=== PATIENT | male | born 1935 | race Caucasian/White ===

== ENCOUNTER 2017-10-23 13:02 | Day surgery (SDC) | payer MEDICARE ==
[~2017-10-23 13:02] MED LIST: ALLEGRA ALLERG180 MG PO; AMIO200; AMIODARONE 100 MG; ASPI81EC PO; CALCAVITD PO; CALCIUM 1200 MG; CARV6.25; CARV6.25 PO; CHOL10002 PO; CLOP75 PO; COREG; DIPH50 PO; ERGO400 PO; FAMO20 PO; FERROUS SULFATE PO; FEXO180; FURO20; FURO40 PO; HORSETAIL PO; HYDROCORT; Isosorbide Mono30 MG PO; LIVALO2 MG PO; LORTISONE CREAM; METO10; METO10 PO; METPRE4DP PO; MULVITA; MULVITMINF PO; OMEGA 3 PO; OMEP20ER PO; PANT40; PRAV20 PO; QUIN10; QUIN10 PO; QUINAPRIL 40 MG; RANI150 PO; ROSU10TA PO; ROSUVASTATIN 5 MG; SAW PALMETTO PO; SPIR25; SPIR25 PO; TAMS.4ER PO; VITAMIN D; WARF5; ZESTRIL40 MG PO; [UNRECOGNIZED DRUG - OTHER]; [UNRECOGNIZED DRUG - REMARK]
[2017-10-23] MEDS ORDERED: Colace100 MG PO (14:03)
[2017-10-23] MEDS ORDERED: D MANNOSE PO (14:08)
[2017-10-23] MEDS ORDERED: Lotrisone Cream45 GM EXT (14:09)
== END 2017-10-23 16:35 | disposition home or self-care (01) ==
LOC: ATC 13:02
DX: I12.9 Hypertensive chronic kidney disease with stage 1 through stage 4 chronic kidney disease, or unspecified chronic kidney disease (principal); N18.4 Chronic kidney disease, stage 4 (severe); D63.1 Anemia in chronic kidney disease
CPT/HCPCS: 36415; 36430; 86850; 86900; 86901; 86920; 96374; J7030; P9016

== ENCOUNTER → 2017-11-06 | Outpatient (CLI) | payer MEDICARE ==
[~2017-11-06] MED LIST changes: +Colace100 MG PO; +D MANNOSE PO; +Lotrisone Cream45 GM EXT; +PANT40 PO
[2017-11-06 13:59] LABS: Stool Occult Bld Immuno 1 Positive (NEGATIVE)
== END ==
LOC: OLS 09:53
PROVIDERS: Internal Medicine Nephrology
DX: N18.3 Chronic kidney disease, stage 3 (moderate) (principal); D63.1 Anemia in chronic kidney disease; R73.09 Other abnormal glucose
CPT/HCPCS: 82274

== ENCOUNTER 2017-12-07 08:54 | Day surgery (SDC) | payer MEDICARE ==
[~2017-12-07] VITALS: Ht 185.4 cm; Wt 106.6 kg
[~2017-12-07 08:54] MED LIST changes: -PANT40 PO
[2017-12-07] MEDS ORDERED: PANT40 PO (09:24)
== END 2017-12-07 22:45 | disposition home or self-care (01) ==
LOC: ORSCMMR 08:54
PROVIDERS: Surgery
PROC: 0DJD8ZZ Inspection of Lower Intestinal Tract, Via Natural or Artificial Opening Endoscopic (ICD-10-PCS; principal; 2017-12-07 10:45)
DX: R19.5 Other fecal abnormalities (principal); Z86.010 Personal history of colon polyps; I10 Essential (primary) hypertension; I25.10 Atherosclerotic heart disease of native coronary artery without angina pectoris; K21.9 Gastro-esophageal reflux disease without esophagitis; E78.5 Hyperlipidemia, unspecified; E66.9 Obesity, unspecified; Z68.31 Body mass index [BMI] 31.0-31.9, adult; D64.9 Anemia, unspecified; Z79.82 Long term (current) use of aspirin; Z79.899 Other long term (current) drug therapy
CPT/HCPCS: J7120

== ENCOUNTER → 2019-01-02 | Outpatient (CLI) | payer MEDICARE ==
[~2019-01-02] MED LIST changes: +PANT40 PO
[2019-01-02 20:06] LABS: Percent Saturation 31.9 % (20.0-50.0)
== END ==
LOC: LAB SHORT 19:04 → LAB 19:04
PROVIDERS: Internal Medicine Hematology & Oncology
DX: D50.0 Iron deficiency anemia secondary to blood loss (chronic) (principal)
CPT/HCPCS: 83540; 83550

== ENCOUNTER → 2019-03-19 | Outpatient (CLI) | payer MEDICARE ==
[2019-03-19 18:58] LABS: Prostate Specific Antigen 0.228 ng/mL (0.000-4.000)
== END ==
LOC: LAB SHORT 17:54 → LAB 17:54
DX: Z08 Encounter for follow-up examination after completed treatment for malignant neoplasm (principal); Z85.46 Personal history of malignant neoplasm of prostate
CPT/HCPCS: 84153

== ENCOUNTER → 2019-05-13 | Outpatient (CLI) | payer MEDICARE | END | disposition home or self-care (01) | LOC: PLD 13:35 → LAB SHORT 13:35 | DX: D48.5 Neoplasm of uncertain behavior of skin (principal) | CPT/HCPCS: 88305 ==

== ENCOUNTER → 2019-10-12 | Outpatient (CLI) | payer MEDICARE ==
[2019-10-12 12:15] LABS: BASOPHILS ABSOLUTE AUTO 0.01 K/mm3 (0.00-0.23); BASOPHILS PERCENT AUTO 0 % (0-2); EOSINOPHILS ABSOLUTE AUTO 0.04 K/mm3 (0.00-0.68); EOSINOPHILS PERCENT AUTO 0 % (0-6); Hematocrit 27.9 % (37.0-53.0); Hemoglobin 9.3 g/dL (13.5-17.5); IMMATURE GRAN ABSOLUTE AUTO 0.06 K/mm3 (0.00-0.10); IMMATURE GRAN PERCENT AUTO 1 % (0-1); LYMPHOCYTES ABSOLUTE AUTO 1.45 K/mm3 (0.84-5.20); LYMPHOCYTES PERCENT AUTO 13 % (21-46); MONOCYTES ABSOLUTE AUTO 1.02 K/mm3 (0.16-1.47); MONOCYTES PERCENT AUTO 9 % (4-13); Mean Corpuscular HGB 33.2 pg (26.0-34.0); Mean Corpuscular HGB Conc 33.3 g/dL (31.5-36.5); Mean Corpuscular Volume 100 fL (80-100); Mean Platelet Volume 10.3 fL (9.1-12.4); NEUTROPHILS ABSOLUTE AUTO 8.92 K/mm3 (1.96-9.15); NEUTROPHILS PERCENT AUTO 78 % (41-73); Platelet Count 177 K/mm3 (150-400); RDW Coefficient Variation 13.6 % (11.7-14.2); RDW Standard Deviation 49.4 fL (35.1-46.3)
[2019-10-12 12:18] LABS: Calcium, Blood 8.9 mg/dL (8.5-10.1); Creatinine, Blood 2.55 mg/dL (0.60-1.20); Potassium, Blood 4.2 mmol/L (3.5-5.5)
== END | disposition home or self-care (01) ==
LOC: LAB EV 12:10 → LAB SHORT 12:10
PROVIDERS: Physician Assistant Surgical
DX: R10.9 Unspecified abdominal pain (principal)
CPT/HCPCS: 80048; 85025

== ENCOUNTER 2020-04-03 16:33 | Inpatient (IN) | payer MEDICARE ==
[~2020-04-03] VITALS: Ht 188 cm; Wt 95.2 kg
[~2020-04-03 16:33] MED LIST changes: -CHOL10002 PO; -Colace100 MG PO; +DOCU100 PO; -Isosorbide Mono30 MG PO; +Isosorbide Mono60 MG PO; +MULTI VITAMIN1 EACH PO; -MULVITMINF PO; +VITAMIN D32000 UNI1 PO
[2020-04-03] MEDS ORDERED: WARF4 PO (16:45)
[2020-04-03] MEDS ORDERED: ALLO100 PO (16:58)
[2020-04-03 17:14] LABS: BASOPHILS ABSOLUTE AUTO 0.03 K/mm3 (0.00-0.23); BASOPHILS PERCENT AUTO 0 % (0-2); EOSINOPHILS ABSOLUTE AUTO 0.08 K/mm3 (0.00-0.68); EOSINOPHILS PERCENT AUTO 1 % (0-6); Hematocrit 31.5 % (37.0-53.0); Hemoglobin 10.1 g/dL (13.5-17.5); IMMATURE GRAN ABSOLUTE AUTO 0.02 K/mm3 (0.00-0.10); IMMATURE GRAN PERCENT AUTO 0 % (0-1); LYMPHOCYTES ABSOLUTE AUTO 1.38 K/mm3 (0.84-5.20); LYMPHOCYTES PERCENT AUTO 18 % (21-46); MONOCYTES ABSOLUTE AUTO 0.86 K/mm3 (0.16-1.47); MONOCYTES PERCENT AUTO 11 % (4-13); Mean Corpuscular HGB 29.7 pg (26.0-34.0); Mean Corpuscular HGB Conc 32.1 g/dL (31.5-36.5); Mean Corpuscular Volume 93 fL (80-100); Mean Platelet Volume 10.1 fL (9.1-12.4); NEUTROPHILS ABSOLUTE AUTO 5.21 K/mm3 (1.96-9.15); NEUTROPHILS PERCENT AUTO 69 % (41-73); Platelet Count 224 K/mm3 (150-400); RDW Standard Deviation 57.6 fL (35.1-46.3); White Blood Cell Count 7.58 K/mm3 (4.00-11.30)
[2020-04-03 17:30] LABS: International Normalized Ratio 2.06; Prothrombin Time Results 21.2 Sec (9.7-11.5)
[2020-04-03 17:31] LABS: Alanine Aminotransfer (ALT/SGP 41 U/L (12-78); Albumin, Blood 3.9 g/dL (3.4-5.0); Albumin/Globulin Ratio 1.3 (0.8-1.8); Alk Phos 57 U/L (50-136); Anion Gap 5 mmol/L (6-16); Aspartate Aminotrans (AST/SGOT 24 U/L (12-37); Bilirubin, Total 0.3 mg/dL (0.1-1.0); Blood Urea Nitrogen 46 mg/dL (8-24); CO2, Blood 25 mmol/L (21-32); Calcium, Blood 8.7 mg/dL (8.5-10.1); Chloride, Blood 102 mmol/L (98-108); Creatinine, Blood 2.19 mg/dL (0.60-1.20); Globulin, Blood 2.9 g/dL (2.2-4.0); Glomerular Filtration Rate 31 (60-); Glucose, Blood 99 mg/dL (70-99); Potassium, Blood 4.3 mmol/L (3.5-5.5); Sodium, Blood 132 mmol/L (136-145); Total Protein, Blood 6.8 g/dL (6.4-8.2); Troponin I <0.015 ng/mL (0.000-0.040)
[2020-04-04 01:00] LABS: BASOPHILS ABSOLUTE AUTO 0.02 K/mm3 (0.00-0.23); BASOPHILS PERCENT AUTO 0 % (0-2); EOSINOPHILS ABSOLUTE AUTO 0.01 K/mm3 (0.00-0.68); EOSINOPHILS PERCENT AUTO 0 % (0-6); Hematocrit 37.1 % (37.0-53.0); Hemoglobin 11.9 g/dL (13.5-17.5); IMMATURE GRAN ABSOLUTE AUTO 0.04 K/mm3 (0.00-0.10); IMMATURE GRAN PERCENT AUTO 0 % (0-1); LYMPHOCYTES ABSOLUTE AUTO 1.38 K/mm3 (0.84-5.20); LYMPHOCYTES PERCENT AUTO 10 % (21-46); MONOCYTES ABSOLUTE AUTO 1.19 K/mm3 (0.16-1.47); MONOCYTES PERCENT AUTO 9 % (4-13); Mean Corpuscular HGB 29.6 pg (26.0-34.0); Mean Corpuscular HGB Conc 32.1 g/dL (31.5-36.5); Mean Corpuscular Volume 92 fL (80-100); Mean Platelet Volume 9.4 fL (9.1-12.4); NEUTROPHILS ABSOLUTE AUTO 11.04 K/mm3 (1.96-9.15); NEUTROPHILS PERCENT AUTO 81 % (41-73); Platelet Count 248 K/mm3 (150-400); RDW Coefficient Variation 16.9 % (11.7-14.2); RDW Standard Deviation 57.4 fL (35.1-46.3); Red Blood Cell Count 4.02 M/mm3 (4.30-5.90); White Blood Cell Count 13.68 K/mm3 (4.00-11.30)
--- NOTE | 2020-04-04 01:17 | NUR ---
ADMIT NOTE 04/03/20 9457 PATIENT ADMITTED TO ICU BED 15. PATIENT ARRIVED ON AMIODARONE DRIP. VITAL SIGNS STABLE UPON ARRIVAL. PATIENT ABLE TO MOVE HIMSELF FROM STRETCHER TO BED. PATIENT ARRIVED ON BIPAP ACCOMPANIED BY RT AND ED RN. PATIENT'S BREAHTING UNLABORED WITH BIPAP ON. ORIENTED PATIENT TO ROOM AND CALL LIGHT USE. DISCUSSED PLAN OF CARE. 2300 TOOK HOME GLASSES, CLOTHING, AND WALLET. PATIENT REQUESTED TO KEEP WATCH AND DENTURES WITH HIM.
[2020-04-04 01:20] LABS: Bun/Creatinine Ratio 19.2 (12.0-20.0); Calcium, Blood 8.7 mg/dL (8.5-10.1); Creatinine, Blood 2.29 mg/dL (0.60-1.20); Potassium, Blood 4.5 mmol/L (3.5-5.5); Troponin I 0.074 ng/mL (0.000-0.040)
--- NOTE | 2020-04-04 06:36 | NUR ---
END OF SHIFT SUMMARY PATIENT IS ALERT AND ORIENTED, BUT CAN BE FORGETFUL AT TIMES. HE FOLLOWS COMMANDS APPROPRIATELY. PATIENT CONTINUES TO TOLERATE BIPAP WELL. CPAP MODE ON WITH AN FIO2 OF 30%. LUNGS CONTINUE TO SOUND CRACKLY. BREATHING REMAINS UNLABORED. AMIODARONE DRIP RUNNING AT 0.5 MG THROUGH PIV. PATIENT HAVING LESS FREQUENT ECTOPY. VSS. CONTINUES TO VOID WITH ADEQUATE URINE OUTPUT. GI WNL. LACERATION TO RIGHT FOREHEAD WITH SUTURES INTACT. PLAN TO CONTINUE TO MONITOR RESPIRATORY AND CARDIAC STATUS CLOSELY.
--- NOTE | 2020-04-04 07:45 | NUR ---
AM NOTE... ASSUMED CARE OF PT APROX 0700, PT IS A&Ox4, PT WAS ADMITTED FOR CHF EXAC. PT DENIES CHEST PAIN/PRESSURE, N/V OR INCREASED SOB AT THIS TIME. PT BECOMES SOB WITH ACTIVITY. PT IS IN AFIB WITH BIGEMINAL PVCS. PT WAS ON CPAP AT THE START OF THIS SHIFT. PT SWITCHED TO NC WITH 2 LNC WITH O2 SATS >92%. OTHER VS STABLE. PT IS TO HAVE ECHO THIS AM. CALL LIGHT IN REACH WILL CONTINUE TO MONITOR.
[2020-04-04 08:32] LABS: Bun/Creatinine Ratio 20.2 (12.0-20.0); Calcium, Blood 8.4 mg/dL (8.5-10.1); Creatinine, Blood 2.18 mg/dL (0.60-1.20); Potassium, Blood 4.1 mmol/L (3.5-5.5)
--- NOTE | 2020-04-04 15:00 | NUR ---
ASSUMED PATIENT CARE. PATIENT ARRIVED FROM ICU VIA WHEELCHAIR. NO SIGNS OF ACUTE DISTRESS, WCTM.
--- NOTE | 2020-04-04 18:54 | NUR ---
NO ACUTE EVENTS THIS SHIFT. VSS, PLAN IS TO CONTINUE IV LASIX FOR DIURESIS. CONTINUED MONITORING OF PULMONARY FUNCTION. PATIENT IN A FIB, RATE CONTROLLED. NO SIGNS OF ACUTE DISTRESS.
--- NOTE | 2020-04-04 19:00 | NUR ---
RELINQUISHED PATIENT CARE.
[2020-04-05 04:40] LABS: International Normalized Ratio 2.84; Prothrombin Time Results 28.6 Sec (9.7-11.5)
--- NOTE | 2020-04-05 05:37 | NUR ---
patient admitted due to syncope episode that is likely of cardiac etiology but currently remains inconclusive. No acute events overnight. Patient denies chest pain, chest pressure, or shortness of breath. Vital signs stable and no complaints or concerns overnight.
--- NOTE | 2020-04-05 07:46 | NUR ---
ASSUMED CARE AT 0700, REPORT FROM MICHAEL GUTIÉRREZ. LAYING IN BED IN LOW FOWLERS ON LEFT SIDE. A/A/0X4. PLEASANT AND HAPPY THIS AM. SUTURES RIGHT FOREHEAD LAC IN TACT. WOUND CLEAN AND DRY. PLAN OF CARE REVIEWED FOR DAY, DENIES NEEDS, WILL CONTINUE TO MONITOR.
--- NOTE | 2020-04-05 09:19 | NUR ---
RECIEVED REPORT FROM GARRY VICE PRESIDENT OF OPERATIONS. PATIENT TO TRANSFER TO ROOM 313.
--- NOTE | 2020-04-05 09:59 | NUR ---
PATIENT ARRIVE TO ROOM 313 AT 0945.
--- NOTE | 2020-04-05 16:01 | NUR ---
PATIENT TRANSFERED FROM PCU THIS AM. DENIES PAIN AND DISCOMFORT. VITALS HAVE BEEN STABLE. PATIENT WITHOUT ANY COMPLAINTS. NO ACUTE CHANGES TO REPORT OF AT THIS TIME. WILL CONTINUE TO MONITOR AND PROVIDE CARE AT THIS TIME.
--- NOTE | 2020-04-06 05:26 | NUR ---
SHIFT SUMMARY A/O, ABLE TO MAKE NEEDS KNOWN. COOPERATIVE WITH CARE. CALLS AND ANSWERS QUESTIONS APPROPRIATELY. NO C/O PAIN/DISCOMFORT. TELE RUNNING AFIB IN 70's PER PCU BILL CLERK. NO ACUTE CHANGES NOTED OVERNIGHT. APPEARED TO REST MUCH OF SHIFT. VSS/AFEBRILE. BED REMAINED IN LOWEST POSITION. CALL LIGHT AND BELONGINGS WITHIN REACH. WCTM. REPORT TO ONCOMING RN.
[2020-04-06 06:06] LABS: International Normalized Ratio 3.38; Prothrombin Time Results 33.8 Sec (9.7-11.5)
[2020-04-06 06:20] LABS: Bun/Creatinine Ratio 20.7 (12.0-20.0); Calcium, Blood 8.6 mg/dL (8.5-10.1); Creatinine, Blood 2.75 mg/dL (0.60-1.20); Potassium, Blood 3.6 mmol/L (3.5-5.5)
[2020-04-06] MEDS ORDERED: TORSE20 PO (16:05)
[2020-04-06] MEDS ORDERED: WARF6 PO (16:08)
[2020-04-06] MEDS ORDERED: Aspir 8181 MG PO (16:09)
--- NOTE | 2020-04-06 17:25 | NUR ---
DISCHARGE PT DISCHARGED TO HOME. THIS RN EXPLAINED DISCHARGE INSTRUCTIONS AND MEDICATIONS TO PT AND HE REPORTS HE UNDERSTANDS. IVS REMOVED WITHOUT DIFFICULTY. PT TRANSFERRED TO PRIVATE VEHICLE VIA WHEELCHAIR. BELONGNINGS WITH PT AND PT'S SPOUSE.
[2020-04-26] MEDS ORDERED: CARVEDILOL3.125 MG PO (21:24)
[2020-04-26] MEDS ORDERED: WARF4 PO (21:34)
[2020-04-27] MEDS ORDERED: LISI5 PO (00:08)
== END 2020-04-06 17:22 | disposition home or self-care (01) | DRG 291 ==
LOC: ER 16:33 → ICUW 16:34 → PCU 04-04 15:01 → MEDS 04-05 09:37
PROVIDERS: Emergency Medicine; Nurse Practitioner Acute Care; Student in an Organized Health Care Education/Training Program; ADMIT Family Medicine
PROC: 5A09357 Assistance with Respiratory Ventilation, Less than 24 Consecutive Hours, Continuous Positive Airway Pressure (ICD-10-PCS; principal; 2020-04-03)
DX: I13.0 Hypertensive heart and chronic kidney disease with heart failure and stage 1 through stage 4 chronic kidney disease, or unspecified chronic kidney disease (principal); I50.21 Acute systolic (congestive) heart failure; J96.01 Acute respiratory failure with hypoxia; N18.4 Chronic kidney disease, stage 4 (severe); I48.19 Other persistent atrial fibrillation; K21.9 Gastro-esophageal reflux disease without esophagitis; I42.9 Cardiomyopathy, unspecified; I25.10 Atherosclerotic heart disease of native coronary artery without angina pectoris; E78.5 Hyperlipidemia, unspecified; Z95.0 Presence of cardiac pacemaker; Z79.01 Long term (current) use of anticoagulants; Z87.891 Personal history of nicotine dependence; Z88.8 Allergy status to other drugs, medicaments and biological substances; Z88.0 Allergy status to penicillin; Z91.013 Allergy to seafood
CPT/HCPCS: 12011; 36415; 70450; 71046; 80048; 80053; 83735; 83880; 84100; 84484; 85025; 85610; 93005; 93010; 94660; 96374-59; 96375-59; 99285-25; A9270-GY; J0282; J1940; J7060

== ENCOUNTER 2020-09-09 14:03 | Day surgery (SDC) | payer MEDICARE ==
[~2020-09-09] VITALS: Ht 185.4 cm; Wt 98.4 kg
[~2020-09-09 14:03] MED LIST changes: +ALLO100 PO; +Aspir 8181 MG PO; +CARVEDILOL3.125 MG PO; +LISI5 PO; +TORSE20 PO; +WARF4 PO; +WARF6 PO
--- NOTE | 2020-09-09 14:42 | NUR ---
09/09/20 1442 Albina Pichardo 1 TRY RIGHT HAND BLEW 2 TRY RIGHT UPPER ARM NO FLASH 3 TRY RIGHT UPPER ARM 4 RIGHT AC GOOD
== END 2020-09-09 16:00 | disposition home or self-care (01) ==
LOC: ORSCSDS 14:03
PROVIDERS: Internal Medicine Gastroenterology
PROC: 0DJ08ZZ Inspection of Upper Intestinal Tract, Via Natural or Artificial Opening Endoscopic (ICD-10-PCS; principal; 2020-09-09 15:30)
DX: K92.1 Melena (principal); Z87.19 Personal history of other diseases of the digestive system; I48.20 Chronic atrial fibrillation, unspecified; I25.10 Atherosclerotic heart disease of native coronary artery without angina pectoris; I10 Essential (primary) hypertension; E78.5 Hyperlipidemia, unspecified; N18.4 Chronic kidney disease, stage 4 (severe); Z80.0 Family history of malignant neoplasm of digestive organs; Z79.899 Other long term (current) drug therapy
CPT/HCPCS: J2704; J7120

== ENCOUNTER → 2020-10-18 | Outpatient (CLI) | payer MEDICARE | END | disposition home or self-care (01) | LOC: LAB 11:23 → LAB SHORT 11:23 | DX: I99.8 Other disorder of circulatory system (principal); R60.0 Localized edema; R58 Hemorrhage, not elsewhere classified | CPT/HCPCS: 88305 ==

== ENCOUNTER → 2023-06-20 | Outpatient (CLI) | payer MEDICARE ==
[~2023-06-20] MED LIST changes: +ALLO300 PO; +Amiodarone HCl200 MG PO; +C COMPLEX1000 M1 PO; +CALCIUM CARBON500 M1 PO; +CALCIUM CARBON650 MG PO; +Colace100 MG PO; +MULVITA PO; +OMEGA-3 + VITA200 ML PO; +ZYRTEC10 M2 PO
[2023-06-21 09:13] LABS: Stool Occult Bld Immuno 1 Negative (NEGATIVE)
== END ==
LOC: LAB SHORT 10:43 → LAB 10:43
PROVIDERS: Family Medicine
DX: Z12.11 Encounter for screening for malignant neoplasm of colon (principal)
CPT/HCPCS: G0328

== ENCOUNTER 2024-10-02 10:34 | Day surgery (SDC) | payer OTHER ==
[~2024-10-02 10:34] MED LIST changes: +Epoetin Alfa-EPBX 10,000 Unit/ML 1ML Vial SC SCH
[2024-10-02 11:02] VITALS: BP 115/69
== END 2024-10-02 11:22 | disposition home or self-care (01) ==
LOC: ATC 10:34
DX: I13.0 Hypertensive heart and chronic kidney disease with heart failure and stage 1 through stage 4 chronic kidney disease, or unspecified chronic kidney disease (principal); N18.9 Chronic kidney disease, unspecified; D63.1 Anemia in chronic kidney disease; I25.10 Atherosclerotic heart disease of native coronary artery without angina pectoris; K21.9 Gastro-esophageal reflux disease without esophagitis; E78.00 Pure hypercholesterolemia, unspecified; I50.9 Heart failure, unspecified; Z79.899 Other long term (current) drug therapy; Z88.0 Allergy status to penicillin; Z88.8 Allergy status to other drugs, medicaments and biological substances; Z91.013 Allergy to seafood
CPT/HCPCS: 96372; Q5106

== ENCOUNTER 2024-11-03 07:20 | Day surgery (SDC) | payer OTHER ==
[~2024-11-03 07:20] MED LIST changes: +WARF2 PO
[2024-11-03] MEDS ORDERED: D-MANNOSE PO (14:21)
[2024-11-03 14:22] VITALS: BP 130/41
== END 2024-11-03 14:32 | disposition home or self-care (01) ==
LOC: ATC 07:20
DX: I13.0 Hypertensive heart and chronic kidney disease with heart failure and stage 1 through stage 4 chronic kidney disease, or unspecified chronic kidney disease (principal); N18.4 Chronic kidney disease, stage 4 (severe); D63.1 Anemia in chronic kidney disease; N25.81 Secondary hyperparathyroidism of renal origin; I50.9 Heart failure, unspecified; I25.10 Atherosclerotic heart disease of native coronary artery without angina pectoris; E78.00 Pure hypercholesterolemia, unspecified; K21.9 Gastro-esophageal reflux disease without esophagitis; I48.91 Unspecified atrial fibrillation; Z87.891 Personal history of nicotine dependence; Z79.01 Long term (current) use of anticoagulants; Z79.899 Other long term (current) drug therapy; Z88.0 Allergy status to penicillin; Z88.8 Allergy status to other drugs, medicaments and biological substances; Z91.013 Allergy to seafood
CPT/HCPCS: 96372; Q5106